=== PATIENT | male | born 1970 | race Caucasian/White ===

== ENCOUNTER → 2023-12-10 11:23 | Outpatient (CLI) | payer OTHER, SELFPAY ==
--- NOTE | 2023-12-10 11:28 | DI.CT.S_ITS ---
PROCEDURE: CT SINUS SCREEN WO CON INDICATIONS: SINUSITIS CHRONIC TECHNIQUE: Noncontrast 3.0 mm axial images acquired from the frontal sinuses to the mid-sella, with coronal and sagittal reformats. For radiation dose reduction, the following was used: automated exposure control, adjustment of mA and/or kV according to patient size. COMPARISON: None. FINDINGS: Image quality: Excellent. Maxillary Sinuses: There is moderate mucosal thickening within the left maxillary sinus, with [id number] mucosal thickening within the right maxillary sinus. The superior medial morse of the maxillary sinuses are demineralized. Ethmoid Air Cells: Muscle thickening seen on the left and moderate mucosal thickening is seen on the right. There is demineralization of several ethmoid air cell septations. Sphenoid Sinuses: Moderate mucosal thickening can be seen on the left side and there is mild mucosal thickening seen on the right. No significant bony changes are seen. Frontal Sinuses: The frontal sinuses are relatively poorly developed. [id number] mucosal thickening can be seen on both sides. Ostiomeatal Complexes: The ostiomeatal complexes are patent, yet they are constitutionally narrowed, with bilateral Karine cells. The ostiomeatal complexes are further narrowed by soft tissue thickening, with near complete occlusion seen on the left. The ostiomeatal complexes are demineralized. Miscellaneous: Visualized intra-orbital contents are normal. No anjelica bullosa or paradoxical turbinate curvature. There is minimal to mild leftward nasal septal deviation. IMPRESSION: Multifocal paranasal sinus disease can be seen, which is more prominent on the left side than on the right. The ostiomeatal complexes are constitutionally narrowed and are further narrowed by soft tissue thickening, with near complete occlusion seen on the left. Areas of bony demineralization are seen, which are consistent with chronic sinusitis. Dictated by: Ravi Garza M.D. on 12/10/2023 at 12:09 Approved by: Ravi Garza M.D. on 12/10/2023 at 12:11
== END ==
PROVIDERS: Referring Provider Internal Medicine Critical Care Medicine; Visit Provider Internal Medicine Critical Care Medicine
DX: J32.8 Other chronic sinusitis (principal)
CPT/HCPCS: 70486